=== PATIENT | female | born 1990 | race Two or more races ===

== ENCOUNTER 2023-07-14 13:13 | Emergency (ER) | payer OTHER, SELFPAY ==
--- NOTE | ~2023-07-14 | XR_ITS ---
EXAMINATION: XR CHEST CLINICAL INFORMATION: Cough, wheezing COMPARISON: None available. TECHNIQUE: 2 views of the chest were obtained. FINDINGS: The cardiomediastinal silhouette is within normal limits. The lungs are well expanded. There is no focal consolidation, edema, or effusion. No pneumothorax. No acute osseous abnormality. XR/XR chest 2V IMPRESSION: No focal consolidation.
[2023-07-14 13:30] VITALS: BP 137/81; PULSE 80; RESP 18; TEMP 36.9; O2SAT 98; BMI 34.9
--- NOTE | 2023-07-14 13:32 | ED.GENADULT ---
HPI - General Adult General Chief complaint: Upper Respiratory Symptoms Stated complaint: sob fever vomiting Time Seen by Provider: 07/14/23 13:57 Source: patient Mode of arrival: ambulatory Limitations: no limitations History of Present Illness HPI narrative: 33-year-old female with a history of asthma presents the ER with 2 days of subjective fevers, chills, coughing, posttussive vomiting, shortness breath, wheezing. Patient denies any neck pain, neck stiffness, headache, chest pain, diarrhea, abdominal pain, urinary symptoms, skin rash. Patient denies any sick contacts or recent travel. Using her inhaler and nebulizer at home with continued symptoms. Related Data Previous Rx's Medication Instructions Recorded albuterol sulfate 2.5 mg/3 mL 2.5 mg (3 mL) inhalation Q4H PRN 07/14/23 (0.083 %) solution for nebulization shortness of breath or wheezing #90 mL albuterol sulfate 90 mcg/actuation 2 puff inhalation QID PRN 07/14/23 aerosol inhaler shortness of breath or wheezing #8.5 grams benzonatate 200 mg capsule 200 mg PO TID PRN cough #30 caps 07/14/23 prednisone 20 mg tablet 40 mg (2 x 20 mg) PO DAILY #8 tabs 07/14/23 Allergies Allergy/AdvReac Type Severity Reaction Status Date / Time shellfish derived Allergy Facial Verified 07/14/23 13:30 Swelling Review of Systems Review of Systems: Yes all other systems are reviewed and are negative Constitutional: Constitutional: Reports no additional constitutional complaints, Denies body ache(s), Reports chills, Reports fever(s), Denies headache(s) and Denies weakness Eyes: Eyes: Reports no additional eye complaints and Denies change in vision ENT: Reports system reviewed and no additional complaints, except as documented, Denies dizziness, Denies headache(s), Denies nasal congestion, Denies nasal discharge and Denies neck pain Cardiovascular: Cardiovascular: Reports no additional cardiovascular complaints, Denies chest pain, Denies leg edema and Reports dyspnea Respiratory: Respiratory: Reports no additional respiratory complaints, Reports cough and Reports dyspnea Gastrointestinal: Gastrointestinal: Reports no additional gastrointestinal complaints, Denies abdominal pain, Denies diarrhea, Denies nausea and Denies vomiting Genitourinary: Genitourinary: Reports no additional female genitourinary complaints and Denies urinary incontinence Musculoskeletal: Musculoskeletal: Reports no additional musculoskeletal complaints, Denies back pain, Denies arthralgias, Denies joint swelling, Denies neck pain, Denies numbness and Denies tingling Integumentary/Breasts: Skin/Breast: Reports system reviewed and no additional complaints, except as docu and Denies rash Neurologic: Reports system reviewed and no additional complaints, except as documented, Denies Abnormal speech present, Denies dizziness, Denies headache(s), Denies numbness, Denies tingling and Denies weakness [facility] Past Medical History Attestation statement: The following information was validated with the patient. Source: old records reviewed and nursing notes reviewed Social History Social History Advance Directives: No Advance Directives Information Provided: No Physical Exam ED Vital Signs: Vital Signs - 24 hr 07/14/23 13:30 07/14/23 15:22 07/14/23 16:09 Temperature 98.4 F 98.8 F Pulse Rate 80 88 Respiratory Rate 18 18 Blood Pressure 137/81 Pulse Oximetry 98 Oxygen Delivery Method Room Air 07/14/23 16:15 Temperature 98.8 F Pulse Rate 86 Respiratory Rate 15 Blood Pressure 118/77 Pulse Oximetry 97 Oxygen Delivery Method Room Air BMI result Body Mass Index 34.9 Const General: cooperative, healthy appearing, comfortable and no acute distress Orientation/consciousness: patient oriented x3 Limitations: no limitations [facility]: Yes normal to inspection Ears: hearing grossly normal bilaterally and TM's normal bilaterally General nose exam: Normal external nose present Face and sinus: Yes normal facial exam Mouth: Normal oral and palatal mucosa present Throat: Yes posterior oropharynx normal, Yes tonsils normal and Yes uvula midline Eyes General: appearance normal, both eyes and all related structures Pupils: Equal, round and reactive pupils present Neck Neck: Yes normal visual inspection, Yes full ROM, Yes no lymphadenopathy and Yes no meningeal signs Chest Chest palpation & inspection: normal inspection of the chest Resp Other: Mild expiratory wheezing Effort & Inspection: normal respiratory effort Cardio Rate: regular rate Rhythm: regular rhythm Peripheral pulses: Peripheral pulses 2+ throughout GI Inspection: Yes normal to inspection Palpation (GI): Soft to palpation and nontender Auscultation: normal bowel sounds Back/Spine/Pelvis Thoracic/Lumbar Spine: thoracic and lumbar spine normal to inspection Skin General skin exam: no rashes or lesions noted Neuro General: patient oriented x3, no meningeal signs, no focal motor deficits and normal sensation to monofilament Cranial nerves: Yes Equal, round and reactive pupils present Cognition (Neuro): normal cognition Speech: No Abnormal speech present Gait exam (Neuro): Normal gait present Motor exam (neuro): 5/5 motor strength present throughout Extrem General: Yes normal to inspection, Yes no pedal edema and Yes no calf tenderness Course Course Course Narrative: RME: 33 yold female presents to the ED for coughing, bodacyhes, fever, and chills. covid and influnea ordered Reevaluation(s) Reevaluation #1: COVID and flu testing are negative. Chest x-ray shows no acute finding. Patient feels improved receiving a DuoNeb. Patient will be discharged home with prednisone course, refills for albuterol and cough suppressant. Likely viral syndrome w/ asthma exacerbation. reviewed worrisome signs and symptoms of when to return to the emergency room. Comfortable plan for discharge home. Medications Administered Discontinued Medications Generic Name Dose Route Start Last Admin Trade Name Ondina PRN Reason Stop Dose Admin Acetaminophen 975 mg 07/14/23 15:01 07/14/23 15:12 Acetaminophen 325 Mg Tablet PO 07/14/23 15:02 975 mg ONCE ONE Administration Albuterol/Ipratropium 3 ml 07/14/23 15:01 07/14/23 15:21 Albuterol/Iprat 2.5/0.5mg 3 Ml Ampul.Neb INHALE 07/14/23 15:02 3 ml ONCE ONE Administration Prednisone 60 mg 07/14/23 15:01 07/14/23 15:12 Prednisone 20 Mg Tablet PO 07/14/23 15:02 60 mg ONCE ONE Administration Medical Decision Making Medical Decision Making MDM Narrative: 33-year-old female with a history of asthma presents the ER with 2 days of subjective fevers, chills, coughing, posttussive vomiting, shortness breath, wheezing. Patient denies any neck pain, neck stiffness, headache, chest pain, diarrhea, abdominal pain, urinary symptoms, skin rash. Patient denies any sick contacts or recent travel. Using her inhaler and nebulizer at home with continued symptoms. mild expiratory wheezing. Temp 100 degrees F when I examined patient. Will review COVID and flu testing ordered from triage. Will obtain chest x-ray, give DuoNeb, p.o. prednisone and Tylenol. Differential Diagnosis Differential Diagnoses: The differential diagnosis associated with the presentation includes Perc is 0- low concern for PE viral syndrome, influenza, pneumonia, asthma exacerbation Admission/Observation Consideration of admission/observation: Escalation of care including admission/observation considered no hypoxia, not requiring supplemental oxygen, no need for admission Lab Data MDM Lab Attestation statement: I reviewed the patient's lab results. Labs: Lab Results 07/14/23 Range/Units 13:39 COVID-19 ([facility]) Negative (Negative) COVID-19 Clin Com See Note Influenza Type A ([facility]) Negative (Negative) Influenza Type B ([facility]) Negative (Negative) Influenza A & B Note See Note Independent Interpretation I performed an independent interpretation of an: Plain X-Ray Interpretation: I independently reviewed the x-ray and agree with radiology report Radiology Impression Discussion of test interpretation with radiology: I have reviewed the radiologist's reading. Radiologist Impression: [place] [id number] XRay Report Signed Patient: Joseph Leon MR#: [id number] : 1990 Acct:[id number] Age/Sex: 33 / F ADM Date: 07/14/23 Loc: .ED Attending Dr: Ordering Physician: Sharonda Christine NP Date of Service: 07/14/23 Procedure(s): XR chest 2V Accession Number(s): [id number] cc: Physician,Unknown ; Sharonda Christine NP~ EXAMINATION: XR CHEST CLINICAL INFORMATION: Cough, wheezing COMPARISON: None available. TECHNIQUE: 2 views of the chest were obtained. FINDINGS: The cardiomediastinal silhouette is within normal limits. The lungs are well expanded. There is no focal consolidation, edema, or effusion. No pneumothorax. No acute osseous abnormality. XR/XR chest 2V IMPRESSION: No focal consolidation. Discharge Plan Discharge Clinical Impression: Viral infection Patient Disposition: Home, Self-Care Instructions: Viral Syndrome (ED) Additional Instructions: Testing for COVID and flu are negative X-ray shows no signs of infection Start your prednisone tomorrow Continue your albuterol inhaler and nebulizer Prescriptions: New benzonatate 200 mg capsule 200 mg PO TID PRN (Reason: cough) Qty: 30 0RF prednisone 20 mg tablet 40 mg PO DAILY Qty: 8 0RF albuterol sulfate 90 mcg/actuation HFA aerosol inhaler 2 puff inhalation QID PRN (Reason: shortness of breath or wheezing) Qty: 8.5 0RF albuterol sulfate 2.5 mg /3 mL (0.083 %) solution for nebulization 2.5 mg inhalation Q4H PRN (Reason: shortness of breath or wheezing) Qty: 90 0RF Referrals: Physician,Unknown J [Primary Care Provider] - 1 week Stand Alone Forms: Work/School Release Interventions: ED Discharge Assessment Last Done: 07/14/23 16:32 Discharge Date/Time: 07/14/23 16:32
[2023-07-14 14:01] LABS: COVID-19 Test Negative (Negative); IDNOW Serial# 16C4AD1C
[2023-07-14 14:10] LABS: IDNOW Serial# 58CA691E; Influenza A Negative (Negative); Influenza B2 Negative (Negative)
[2023-07-14] MEDS: predniSONE 20 MG TABLET 60 MG PO (15:12)
[2023-07-14] MEDS: Acetaminophen 325 MG TABLET 975 MG PO (15:12)
[2023-07-14] MEDS: Albuterol/Iprat 2.5/0.5MG 3 ML AMPUL.NEB INHALE (15:21)
[2023-07-14 15:22] VITALS: PULSE 88; RESP 18; O2SAT 98
[2023-07-14 16:09] VITALS: TEMP 37.1
[2023-07-14 16:15] VITALS: BP 118/77; PULSE 86; RESP 15; TEMP 37.1; O2SAT 97
== END 2023-07-14 16:32 | disposition home or self-care (01) ==
PROVIDERS: Physician Assistant; Emergency Provider Emergency Medicine
DX: B34.9 Viral infection, unspecified (principal); R06.02 Shortness of breath; R50.9 Fever, unspecified; R05.9 Cough, unspecified; Z20.822 Contact with and (suspected) exposure to COVID-19; Z20.828 Contact with and (suspected) exposure to other viral communicable diseases
CPT/HCPCS: 71046; 87502; 87635; 94640; 99284